=== PATIENT | female | born 1975 | race Caucasian/White ===

== ENCOUNTER 2020-05-19 11:00 | Emergency (ER) | payer BC, SELFPAY ==
[2020-05-19 11:29] VITALS: BP 133/87; PULSE 86; RESP 16; TEMP 36.8; O2SAT 99
--- NOTE | 2020-05-19 12:06 | ED.URI ---
HPI - URI/Sore Throat General Chief Complaint: Upper Respiratory Infection Stated Complaint: cough/ congestion/ sore throat Time Seen by Provider: 05/19/20 12:07 Source: patient and RN notes reviewed Mode of arrival: ambulatory Limitations: no limitations History of Present Illness HPI Narrative: 44 year old female who presents to [facility] care with 4 day history of cough, sore throat, nasal congestion and drainage. Patient states that since Friday of last week she has also had frontal sinus headache. Patient denies any known fevers, chills or sweats, denies any acute chest congestion or any shortness of breath. She reports that she has been using Flonase nasal spray and taking Benadryl with no resolution in her symptoms. Patient states history of seasonal allergies and sinus infections in the past. MD elicited complaint: cough, sore throat, rhinorrhea, nasal congestion and other (frontal headache last week) Pertinent past history: sinusitis and seasonal allergies Onset (ago): day(s) (4) Consistency: progressively worsening Description of mucous: clear and yellow Able to tolerate fluids by mouth: Yes Context: sick contacts Treatments prior to arrival: other (flonase, Benadryl) Related Data Home Medications Medication Instructions Recorded Confirmed levothyroxine [Synthroid] 05/19/20 Allergies Allergy/AdvReac Type Severity Reaction Status Date / Time No Known Allergies Allergy Verified 05/19/20 11:47 Review of Systems Review of Systems: Narrative: CONSTITUTIONAL: Denies fever, chills, or sweats. EYES: Denies visual changes, redness, or discharge. ENT: Positive for rhinorrhea, congestion, sore throat, no otalgia. CARDIOVASCULAR: Denies chest pain, palpitations, or edema. RESPIRATORY: Positive for cough denies dyspnea. GASTROINTESTINAL: Denies abdominal pain, nausea, vomiting, or diarrhea. GENITOURINARY: Denies dysuria or hematuria. SKIN: Denies rash or itching. MUSCULOSKELETAL: Denies back pain, joint pain, or myalgia. NEUROLOGIC: Positive frontal headache,no numbness, or weakness. PSYCHIATRIC: Denies anxiety or depression. All systems reviewed & are unremarkable except as noted in HPI and below PMFSH Past Medical History Medical History (Updated 05/20/20 @ 15:42 by Rebeca Torres NP) Hx of Maria L thyroiditis Hypothyroidism IBS (irritable bowel syndrome) Sinus infection Surgical History Surgical History (Updated 05/20/20 @ 15:46 by Rebeca Torres NP) No history of previous surgery Family History Family History (Updated 05/20/20 @ 15:43 by Rebeca Torres NP) Other Carcinoma of colon Diabetes mellitus Heart disease Hypertension Social History Social History (Updated 05/20/20 @ 15:42 by Rebeca Torres NP) Smoking status: Never smoker Alcohol intake: current Alcohol use details: rare social Substance use: never Living arrangements: with family Gender identity (if verbalized by the patient): Female Comments At time of signature, agree with nursing past medical, surgical, social and family history. There is no relevant family history pertinent to the presenting complaint Exam Narrative: Exam Narrative: GENERAL: Well-appearing, well-nourished, and in no acute distress. HEAD: Normocephalic, atraumatic. EYES: PERRLA and EOMI. ENT: Nares red and turbinates swollen with clear to light yellow rhinorrhea no epistaxis. Mucous membranes moist.TM's normal with good light reflex, no canal drainage noted, Throat red with no tonsil enlargement or exudates or lesions, copious post nasal drainage noted NECK: Supple.no lymphadenopathy CHEST: Clear to auscultation. No respiratory distress.cough, SAO2 99% on room air. HEART: Regular rate and rhythm. No murmur heard. Normal peripheral pulses. ABDOMEN: Soft, nontender, nondistended, normal active bowel sounds. EXTREMITIES: Normal range of motion. No edema. SKIN: Warm, dry, no rash. NEURO: No focal deficits. Alert and oriented x3.
== END 2020-05-19 12:40 | disposition home or self-care (01) ==
PROVIDERS: Emergency Provider Registered Nurse
DX: J01.90 Acute sinusitis, unspecified (principal); Z20.822 Contact with and (suspected) exposure to COVID-19; E03.9 Hypothyroidism, unspecified; E06.3 Autoimmune thyroiditis
CPT/HCPCS: 87081; 87426; 87804; 87880; 99213; C9803; G0463